=== PATIENT | male | born 1945 | race Caucasian/White ===

== ENCOUNTER 2017-01-21 09:25 | Emergency (ER) | payer MEDICARE, MEDICAID ==
[~2017-01-21] VITALS: Ht 175.3 cm; Wt 96.2 kg
[~2017-01-21 09:25] MED LIST: AMIT25TA9 PO; ASPI-1063 PO; CHOL100028 PO; FEBU80TA PO; FURO-150 PO; GABA-529 PO; GLU850 PO; IBUP100T8 PO; LOVA10TA55 PO; LOVA40TA75 PO; SAXA5TAB PO
[2017-01-21 09:34] VITALS: BP_SYST 139
--- NOTE | 2017-01-21 09:34 | NUR ---
Placed in room 05. Placed on electronic device monitor, blood pressure machine and pulse oximeter. To gown for exam. Side rails up. Report given to DAWIT Sparrow.
[2017-01-21] MEDS ORDERED: NACL 0.9% 1,000 ML IV ONE (09:51)
--- NOTE | 2017-01-21 09:53 | NUR ---
ER at bedside examining patient.
--- NOTE | 2017-01-21 09:53 | NUR ---
# 18 gauge angiocath placed to LAC. Use of asceptic technique. Opsite placed over site. Blood return noted. Blood for lab drawn from site. Flushed with 10 cc of normal saline. No evidence of infiltration noted. Patient tolerated well.
--- NOTE | 2017-01-21 09:54 | NUR ---
Pt c/o abdominal pain,constipation for five days,frequent burping. abdominal soft,non-tender.bowel sound presnet. no distress noted.
[2017-01-21] MEDS ORDERED: ATEN50TA PO (09:59)
[2017-01-21] MEDS ORDERED: NOR10 PO (09:59)
[2017-01-21] MEDS ORDERED: LISI40TA4 PO (09:59)
[2017-01-21] MEDS ORDERED: KETOROLAC TROMETHAMINE 30 MG VIAL IVP ONE (10:00)
--- NOTE | 2017-01-21 10:00 | NUR ---
Medication reconciliation completed with information provided by . Any prior medication reconciliation on file was reviewed and corrected.
--- NOTE | 2017-01-21 10:15 | NUR ---
transported to ct scan via [facility]
--- NOTE | 2017-01-21 10:37 | NUR ---
back from ct scan ,denies any pain. resting in bed.
[2017-01-21 10:42] LABS: BASOPHILS % (AUTO) 0.3 % (0.0-2.0); EOSINOPHILS # (AUTO) 0.1 K/uL (0.0-0.4); EOSINOPHILS % (AUTO) 1.3 % (0.0-4.0); HEMATOCRIT 43.6 % (36-54); HEMOGLOBIN 14.3 g/dL (14.0-18.0); LYMPHOCYTES # (AUTO) 3.5 K/uL (1.0-5.5); LYMPHOCYTES % (AUTO) 36.6 % (20.5-51.5); MEAN CORPUSCULAR HEMOGLOBIN 25 pg (27-31); MEAN CORPUSCULAR HGB CONC 33 % (32-36); MEAN CORPUSCULAR VOLUME 76 fL (79.0-98.0); MONOCYTES # (AUTO) 1.1 K/uL (0.0-1.0); MONOCYTES % (AUTO) 11.1 % (1.7-9.3); NEUTROPHILS # (AUTO) 4.9 K/uL (1.8-7.7); NEUTROPHILS % (AUTO) 50.7 % (40.0-70.0); PLATELET COUNT (AUTO) 273 K/uL (130-430); RED BLOOD CELL COUNT(AUTO) 5.71 MIL/uL (4.2-6.2); WHITE BLOOD COUNT (AUTO) 9.6 K/uL (4.8-10.8)
[2017-01-21 10:55] LABS: ANION GAP 6 (5-15); CALCIUM 9.1 mg/dL (8.4-11.0); CHLORIDE 104 mmol/L (98-107); CREATININE 1.46 mg/dL (0.55-1.30); GLUCOSE 108 mg/dL (70-99); POTASSIUM 3.8 mmol/L (3.5-5.1); SODIUM SERUM 138 mmol/L (136-145); UREA NITROGEN, BLOOD 16 mg/dL (8-21)
[2017-01-21 11:00] LABS: ALANINE AMINOTRANSFERASE 33 U/L (12-78); ALBUMIN 3.8 g/dL (3.4-4.8); ASPARTATE AMINOTRANSFERASE 18 U/L (10-37); LIPASE 137 U/L (73-393); TOTAL BILIRUBIN 1.2 mg/dL (0.0-1.0); TOTAL PROTEIN, SERUM 7.4 g/dL (6.4-8.3)
--- NOTE | 2017-01-21 12:00 | NUR ---
Patient given written and verbal discharge instructions and verbalizes understanding. ER MD discussed with patient the results and treatment provided. Given copies of tests performed in ER. Patient in stable condition. ID arm band removed. IV catheter removed intact and dressing applied, no active bleeding. Rx of golytely and tramadol given. Patient educated on pain management and to follow up with PMD. Pain Scale 0/10. Opportunity for questions provided and answered.
[2017-01-21 12:01] VITALS: BP_SYST 165
== END 2017-01-21 12:01 | disposition home or self-care (01) ==
LOC: SED 09:25
DX: K59.00 Constipation, unspecified (principal); I10 Essential (primary) hypertension; E11.9 Type 2 diabetes mellitus without complications
CPT/HCPCS: 36415; 74176; 80053; 83690; 84484; 85025; 93005; 96361; 96374; 99285; J1885; J7030

== ENCOUNTER 2018-05-13 06:03 | Emergency (ER) | payer MEDICARE, MEDICAID ==
[~2018-05-13] VITALS: Ht 177.8 cm; Wt 88.0 kg
[2018-05-13 06:03] VITALS: BP_SYST 135
[~2018-05-13 06:03] MED LIST changes: +ATEN50TA PO; +LISI40TA4 PO; +NOR10 PO
[2018-05-13] MEDS ORDERED: LEVOFLOXACIN 500 MG TABLET PO ONE (07:30)
[2018-05-13 07:44] VITALS: BP_SYST 132
== END 2018-05-13 07:44 | disposition home or self-care (01) ==
LOC: SED 06:03
DX: J18.9 Pneumonia, unspecified organism (principal); E11.9 Type 2 diabetes mellitus without complications; I10 Essential (primary) hypertension; E78.00 Pure hypercholesterolemia, unspecified; M06.9 Rheumatoid arthritis, unspecified; Z88.0 Allergy status to penicillin; Z79.82 Long term (current) use of aspirin; Z79.899 Other long term (current) drug therapy
CPT/HCPCS: 71045; 99283